=== PATIENT | male | born 1995 | race Caucasian/White ===

== ENCOUNTER 2018-08-03 20:57 | Emergency (ER) | payer BC ==
[2018-08-03] MEDS ORDERED: LORazepam 2 MG/ML SDV IM ONE (21:30)
--- NOTE | 2018-08-03 21:50 | EDM.PDOCBH ---
ED HPI GENERAL MEDICAL PROBLEM - General Chief Complaint: Behavioral/Psych Stated Complaint: BOTH HANDS NUMB AND RIGHT LEG POSSIBLE ANXIETY ATT Time Seen by Provider: 08/03/18 21:26 Source of Information: Reports: Patient History Limitations: Reports: No Limitations, Uncooperative - History of Present Illness INITIAL COMMENTS - FREE TEXT/NARRATIVE: Patient is a 22 year old male who presents to the ED for the evaluation of an anxiety attack. He notes a history of anxiety, but no home medications. He states that this came on suddenly; and he feels SOB, shakiness, tingling of hands and feet. He states that he has a headache as well. He denies taking any substances that may have aggravated this. He states that he has just recently lost his mother to a sudden heart issue, and states that his dad is sick too. Treatments CUSTOMER SUCCESS SPECIALIST: Reports: Other (see below) Other Treatments CUSTOMER SUCCESS SPECIALIST: none Generalized Pain Score (Numeric/FACES): 10 - Related Data Allergies Allergy/AdvReac Type Severity Reaction Status Date / Time No Known Allergies Allergy Verified 06/21/18 18:20 Home Meds: Home Meds LORazepam [Ativan] 0.5 mg PO Q6H PRN #10 tab 08/03/18 [Rx] Past Medical History - Past Health History Medical/Surgical History: Denies Medical/Surgical History HEENT History: Reports: Other (See Below) Other HEENT History: siinus surgery - Past Surgical History GI Surgical History: Reports: Hernia, Abdominal Social & Family History - Tobacco Use Smoking Status *Q: Current Every Day Smoker Years of Tobacco use: 3 Packs/Tins Daily: 1 - Caffeine Use Caffeine Use: Reports: Soda - Recreational Drug Use Recreational Drug Type: Reports: Marijuana/Hashish Other Recreational Drug Type: does marijuana once per day ED ROS GENERAL - Review of Systems Review Of Systems: See Below Constitutional: Denies: Fever, Chills HEENT: Reports: No Symptoms Respiratory: Reports: Shortness of Breath Cardiovascular: Reports: No Symptoms Endocrine: Reports: No Symptoms GI/Abdominal: Reports: No Symptoms : Reports: No Symptoms Musculoskeletal: Reports: Hand Pain (with numbness/tingling), Foot Pain (with numbness/tingling) Neurological: Reports: Headache, Numbness, Tingling. Denies: Tremors Psychiatric: Reports: Anxiety Hematologic/Lymphatic: Reports: No Symptoms Immunologic: Reports: No Symptoms ED EXAM, BEHAVIORAL HEALTH - Physical Exam Exam: See Below Exam Limited By: No Limitations General Appearance: Alert, WD/WN, Anxious, Mild Distress Eye Exam: Bilateral Eye: EOMI, Normal Inspection, PERRL Ears: Normal External Exam Nose: Normal Inspection Throat/Mouth: Normal Inspection, Normal Oropharynx, No Airway Compromise Head: Atraumatic, Normocephalic Neck: Normal Inspection, Supple, Non-Tender Respiratory/Chest: No Respiratory Distress, Lungs Clear, Normal Breath Sounds, No Accessory Muscle Use, Chest Non-Tender Cardiovascular: Normal Peripheral Pulses, Regular Rate, Rhythm, No Murmur GI/Abdominal: Normal Bowel Sounds, Soft, Non-Tender, No Distention Extremities: Normal Inspection, Normal Capillary Refill Neurological: Alert, Normal Mood/Affect, Normal Cognition, Normal Reflexes, No Motor/Sensory Deficits, Oriented x 3, Tremor (pt is tremulous, but is noted that he is shaky due to anxiety attack.) Psychiatric: Alert, Normal Affect, Normal Cognition, Normal Mood, Oriented Skin Exam: Warm, Dry, Intact, Normal color, No rash COURSE, BEHAVIORAL HEALTH COMP - Course Vital Signs: Last Vital Signs Temp 98.7 F 08/03/18 21:20 Pulse 115 H 08/03/18 21:20 Resp 20 08/03/18 21:20 BP 160/105 H 08/03/18 21:20 Pulse Ox 100 08/03/18 21:20 Orders, Labs, Meds: Active Orders 24 hr Category Date Time Status Zolpidem [Ambien] Med 08/03/18 22:49 Once 5 mg PO ONETIME ONE Laboratory Tests 08/03/18 08/03/18 08/03/18 Range/Units 21:43 21:43 21:43 WBC 8.29 (4.23-9.07) K/mm3 RBC 5.29 (4.63-6.08) M/mm3 Hgb 16.9 (13.7-17.5) gm/L Hct 47.4 (40.1-51.0) % MCV 89.6 (79.0-92.2) fl MCH 31.9 (25.7-32.2) pg MCHC 35.7 H (32.2-35.5) g/dl RDW Std Deviation 42.9 (35.1-43.9) fL Plt Count 301 (163-337) K/mm3 MPV 9.4 (9.4-12.3) fl Neutrophils % (Manual) 65 H (40-60) % Band Neutrophils % 2 (0-10) % Lymphocytes % (Manual) 23 (20-40) % Atypical Lymphs % 0 % Monocytes % (Manual) 6 (2-10) % Eosinophils % (Manual) 2 (0.8-7.0) % Basophils % (Manual) 2 H (0.2-1.2) Platelet Estimate Adequate Plt Morphology Comment Normal RBC Morph Comment Normal Sodium 142 (136-145) mEq/L Potassium 3.4 L (3.5-5.1) mEq/L Chloride 104 (98-107) mEq/L Carbon Dioxide 24 (21-32) mEq/L Anion Gap 17.4 H (5-15) BUN 8 (7-18) mg/dL Creatinine 0.8 (0.7-1.3) mg/dL Est Cr Clr Drug Dosing 127.89 mL/min Estimated GFR (MDRD) > 60 (>60) mL/min BUN/Creatinine Ratio 10.0 L (14-18) Glucose 97 (74-106) mg/dL Calcium 8.7 (8.5-10.1) mg/dL Total Bilirubin 0.3 (0.2-1.0) mg/dL AST 84 H (15-37) U/L ALT 83 H (16-63) U/L Alkaline Phosphatase 103 (46-116) U/L Total Protein 7.4 (6.4-8.2) g/dl Albumin 4.0 (3.4-5.0) g/dl Globulin 3.4 gm/dL Albumin/Globulin Ratio 1.2 (1-2) TSH 3rd Generation 0.708 (0.358-3.74) uIU/mL Medications Discontinued Medications Generic Name Dose Route Start Last Admin Trade Name Freq PRN Reason Stop Dose Admin Lorazepam 1 mg 08/03/18 21:30 08/03/18 21:37 Ativan IM 08/03/18 21:31 1 mg ONETIME ONE Administration Re-Assessment/Re-Exam: 08/03/18 21:40 Pt presents to the ED for an acute anxiety attack. The patient is in obvious distress at this time. 1mg Ativan IM will be ordered to help calm his nerves. CBC, CMP, and TSH are ordered for further evaluation. The patient denies taking any drugs or substances that would have cause him to feel this way. 08/03/18 22:30 Pt reassessed at bedside. He states that he does not feel any better, but his shaking is visibly gone and clinically looks much better. His labs demonstrate that he is a little dry, but I will suggest that he increase fluid intake and follow up in clinic for chronic management of this. I do not feel that giving any more ativan at this time is appropriate. Plan is to d/c home with above plan. He did also have some increased liver enzymes, re-check of these labs will be recommended to patient as well. 08/03/18 22:50 Plan was discussed in length with patient, he is worried about being able to sleep tonight. He will be given 1-5mg tab of ambien to take home with him. He will be provided a script for a few 0.5mg ativan tabs to use PRN for anxiety, with the stress of establishing care with PCP. Departure - Departure Time of Disposition: 22:52 Disposition: Home, Self-Care 01 Condition: Fair Clinical Impression: Anxiety - Discharge Information *PRESCRIPTION DRUG MONITORING PROGRAM REVIEWED*: No *COPY OF PRESCRIPTION DRUG MONITORING REPORT IN PATIENT DRU: No Instructions: Panic Attack, [id number] Referrals: PCP,None [Primary Care Provider] - Forms: ED Department Discharge Additional Instructions: You have been evaluated in the ED for your anxiety. You have been given 1mg Ativan. This is an appropriate dose of medication for the symptoms you were experiencing. Your labs demonstrate that you may be a little dehydrated, please increase oral fluid intake. Recommend establishing care with a primary care provider for chronic management of your anxiety. Please call [phone] to do so. Please return to ED if your symptoms should change or worsen. - My Orders Last 24 Hours: My Active Orders 08/03/18 22:49 Zolpidem [Ambien] 5 mg PO ONETIME ONE - Assessment/Plan Last 24 Hours: My Active Orders 08/03/18 22:49 Zolpidem [Ambien] 5 mg PO ONETIME ONE
[2018-08-03] MEDS ORDERED: Zolpidem 5 MG Tab PO ONE (22:49)
== END 2018-08-03 23:29 | disposition home or self-care (01) ==
LOC: JD.ED 20:57
DX: F41.0 Panic disorder [episodic paroxysmal anxiety] (principal)
CPT/HCPCS: 36415; 80053; 84443; 85007; 85027; 96372; 99283; A9270; J2060